=== PATIENT | female | born 1945 | race Caucasian/White ===

== ENCOUNTER → 2016-07-12 | Outpatient (CLI) | payer OTHER | LOC: KOH-I 10:11 | DX: M19.042 Primary osteoarthritis, left hand (principal) | CPT/HCPCS: 73140 ==

== ENCOUNTER 2021-05-04 19:30 | Inpatient (IN) | payer MEDICARE ==
[~2021-05-04] VITALS: Ht 162.6 cm; Wt 74.8 kg
[~2021-05-04 19:30] MED LIST changes: -ATORVASTATIN CA20 MG PO; -BENEFIBER475 GM PO; -CELEXA 20MG TAB20 MG PO; -CELEXA10 MG PO; -ELIQUIS5 MG PO; -EVISTA 60 MG TA60 MG PO; -MELOXICAM15 MG PO; -SINGULAIR10 MG PO; -SUPER B-COMPL400 MCG PO
[2021-05-04 20:47] LABS: BUN/CREATININE RATIO 25 (0-10)
[2021-05-04 21:04] LABS: HEMOGLOBIN 13.9 gm/dl (12.3-15.3); RED BLOOD COUNT 4.27 M/UL (4.00-5.10); WHITE BLOOD COUNT 7.5 K/UL (4.5-11.0)
[2021-05-05] MEDS ORDERED: NEXIUM40 MG PO (01:58)
[2021-05-05] MEDS ORDERED: MELATONIN10 M2 PO (01:59)
[2021-05-05] MEDS ORDERED: CELEXA10 MG PO (02:00)
[2021-05-05] MEDS ORDERED: MELOXICAM15 MG PO (02:02)
[2021-05-05 05:13] LABS: HEMOGLOBIN 12.6 gm/dl (12.3-15.3); RED BLOOD COUNT 3.92 M/UL (4.00-5.10); WHITE BLOOD COUNT 5.8 K/UL (4.5-11.0)
[2021-05-05 05:17] LABS: BUN/CREATININE RATIO 21 (0-10)
[2021-05-05] MEDS ORDERED: ATORVASTATIN CA20 MG PO (06:39)
[2021-05-05] MEDS ORDERED: SINGULAIR10 MG PO (06:42)
[2021-05-05] MEDS ORDERED: BENEFIBER475 GM PO (06:45)
[2021-05-05] MEDS ORDERED: EVISTA 60 MG TA60 MG PO (13:00)
[2021-05-05] MEDS ORDERED: SUPER B-COMPL400 MCG PO (13:05)
[2021-05-06 06:35] LABS: HEMOGLOBIN 12.4 gm/dl (12.3-15.3); RED BLOOD COUNT 3.87 M/UL (4.00-5.10); WHITE BLOOD COUNT 5.6 K/UL (4.5-11.0)
[2021-05-06 07:20] LABS: BUN/CREATININE RATIO 20 (0-10)
[2021-05-06] MEDS ORDERED: CELEXA 20MG TAB20 MG PO (16:41)
[2021-05-06] MEDS ORDERED: ELIQUIS5 MG PO (16:41)
== END 2021-05-06 18:16 | disposition home or self-care (01) | DRG 176 ==
LOC: ER1 19:30 → M/S 20:31 → CDU 20:31 → 3 EAST 05-05 02:03 → M/S 05-05 20:59
PROVIDERS: Emergency Medicine; ADMIT Internal Medicine
PROC: B24BZZZ Ultrasonography of Heart with Aorta (ICD-10-PCS; principal; 2021-05-05)
DX: I26.99 Other pulmonary embolism without acute cor pulmonale (principal); L30.9 Dermatitis, unspecified; Z20.822 Contact with and (suspected) exposure to COVID-19; E78.5 Hyperlipidemia, unspecified; I10 Essential (primary) hypertension; M19.91 Primary osteoarthritis, unspecified site; Z90.710 Acquired absence of both cervix and uterus; Z82.49 Family history of ischemic heart disease and other diseases of the circulatory system; Z83.438 Family history of other disorder of lipoprotein metabolism and other lipidemia; Z79.01 Long term (current) use of anticoagulants; Z79.52 Long term (current) use of systemic steroids; Z79.899 Other long term (current) drug therapy
CPT/HCPCS: ECHO; 36415; 70450; 71045; 80048; 82550; 82553; 83874; 84132; 84484; 85025; 85610; 85730; 93005; 93306; 96374; 99285; J1644; U0002

== ENCOUNTER → 2021-05-04 | Outpatient (CLI) | payer MEDICARE ==
[~2021-05-04] MED LIST: ATIVAN 1MG TABLE1 MG PO; ATORVASTATIN CA20 MG PO; BENEFIBER475 GM PO; CELEXA 20MG TAB20 MG PO; CELEXA10 MG PO; CHLORTHALIDONE25 MG PO; CITALOPRAM HBR10 MG PO; DILTIAZEM ER180 MG PO; DRISDOL50000 UNIT PO; ELIQUIS5 MG PO; EVISTA 60 MG TA60 MG PO; EVISTA60 MG PO; MEGA BIOTIN10000 MCG PO; MELATONIN10 M2 PO; MELOXICAM15 MG PO; MULTIVITAMIN W1 EAC1 PO; NEXIUM40 MG PO; SINGULAIR10 MG PO; STOOL SOFTENER100 MG PO; SUPER B-COMPL400 MCG PO; TURMERIC PO; VESICARE5 MG PO; VITAMIN B-121000 MCG PO
== END ==
LOC: CT 17:00
DX: R06.02 Shortness of breath (principal); R79.89 Other specified abnormal findings of blood chemistry; I26.94 Multiple subsegmental thrombotic pulmonary emboli without acute cor pulmonale
CPT/HCPCS: 71275; Q9967

== ENCOUNTER 2021-05-20 11:18 | Emergency (ER) | payer MEDICARE ==
[~2021-05-20 11:18] MED LIST changes: +ATORVASTATIN CA20 MG PO; +BENEFIBER475 GM PO; +CELEXA 20MG TAB20 MG PO; +CELEXA10 MG PO; +ELIQUIS5 MG PO; +EVISTA 60 MG TA60 MG PO; +MELOXICAM15 MG PO; +SINGULAIR10 MG PO; +SUPER B-COMPL400 MCG PO
[2021-05-20 12:19] LABS: HEMOGLOBIN 13.7 gm/dl (12.3-15.3); RED BLOOD COUNT 4.19 M/UL (4.00-5.10)
[2021-05-20 12:40] LABS: BUN/CREATININE RATIO 15 (0-10)
[2021-05-20] MEDS ORDERED: PREDNISONE 20 M20 MG PO (17:19)
== END 2021-05-20 15:25 | disposition home or self-care (01) ==
LOC: ER1 11:18
PROVIDERS: Physician Assistant
DX: R07.89 Other chest pain (principal); E87.6 Hypokalemia; M79.81 Nontraumatic hematoma of soft tissue; R20.9 Unspecified disturbances of skin sensation; I10 Essential (primary) hypertension; Z86.711 Personal history of pulmonary embolism
CPT/HCPCS: 71045; 73030; 80053; 81001; 82550; 82553; 83874; 84484; 85025; 93005; 99285

== ENCOUNTER → 2021-05-25 | Outpatient (CLI) | payer MEDICARE ==
[~2021-05-25] MED LIST changes: +PREDNISONE 20 M20 MG PO
== END ==
LOC: KOH-I 12:02
DX: M54.2 Cervicalgia (principal); M47.812 Spondylosis without myelopathy or radiculopathy, cervical region
CPT/HCPCS: 72050

== ENCOUNTER → 2021-06-20 | Outpatient (CLI) | payer MEDICARE | LOC: KOH-I 14:00 | DX: M50.11 Cervical disc disorder with radiculopathy, high cervical region (principal); R20.2 Paresthesia of skin | CPT/HCPCS: 72141 ==

== ENCOUNTER → 2021-09-22 | Outpatient (CLI) | payer MEDICARE ==
[~2021-09-22] MED LIST changes: +CLARITIN10 M2 PO; +K-TAB ER20 MEQ PO; +LEVOFLOXACIN500 MG PO
[2021-09-22 15:26] LABS: BORDETELLA PARAPERTUSSIS Not Detected (Not Detectd); BORDETELLA PERTUSSIS Not Detected (Not Detectd); CHLAMYDIA PNEUMONIAE Not Detected (Not Detectd); CORONAVIRUS HKU1 Not Detected (Not Detectd); CORONAVIRUS NL63 Not Detected (Not Detectd); CORONAVIRUS OC43 Not Detected (Not Detectd); CORONOAVIRUS 229E Not Detected (Not Detectd); HUMAN METAPNEUMOVIRUS Not Detected (Not Detectd); HUMAN RHINOVIRUS/ENTEROVIRUS Not Detected (Not Detectd); INFLUENZA A Not Detected (Not Detectd); INFLUENZA B Not Detected (Not Detectd); MYCOPLASMA PNEUMONIAE Not Detected (Not Detectd); PARAINFLUENZA VIRUS 1 Not Detected (Not Detectd); PARAINFLUENZA VIRUS 2 Not Detected (Not Detectd); PARAINFLUENZA VIRUS 3 Not Detected (Not Detectd); PARAINFLUENZA VIRUS 4 Not Detected (Not Detectd); RESPIRATORY SYNCYTIAL VIRUS Not Detected (Not Detectd)
[2021-09-22 16:49] LABS: SARS-CoV-2 NOT DETECTED (Not Detectd)
== END ==
LOC: LAB 15:06
PROVIDERS: Physician Assistant
DX: R05.9 Cough, unspecified (principal); R50.9 Fever, unspecified; Z20.822 Contact with and (suspected) exposure to COVID-19; J98.4 Other disorders of lung
CPT/HCPCS: 71046; 87633

== ENCOUNTER 2021-09-26 09:34 | Emergency (ER) | payer MEDICARE ==
[~2021-09-26 09:34] MED LIST changes: -CLARITIN10 M2 PO; -K-TAB ER20 MEQ PO; -LEVOFLOXACIN500 MG PO
[2021-09-26 10:59] LABS: HEMOGLOBIN 13.1 gm/dl (12.3-15.3); RED BLOOD COUNT 4.03 M/UL (4.00-5.10); WHITE BLOOD COUNT 10.4 K/UL (4.5-11.0)
[2021-09-26 11:16] LABS: BUN/CREATININE RATIO 13 (0-10)
[2021-09-26 20:31] LABS: BUN/CREATININE RATIO 12 (0-10)
[2021-09-26] MEDS ORDERED: LEVOFLOXACIN500 MG PO (21:00)
[2021-09-26] MEDS ORDERED: K-TAB ER20 MEQ PO (21:00)
[2021-09-26] MEDS ORDERED: CLARITIN10 M2 PO (21:22)
== END 2021-09-26 22:06 | disposition home or self-care (01) ==
LOC: ER1 09:34
PROVIDERS: Internal Medicine; Physician Assistant
DX: J18.9 Pneumonia, unspecified organism (principal); E87.1 Hypo-osmolality and hyponatremia; E87.6 Hypokalemia; R31.9 Hematuria, unspecified; R79.1 Abnormal coagulation profile; Z20.822 Contact with and (suspected) exposure to COVID-19; I10 Essential (primary) hypertension; K21.9 Gastro-esophageal reflux disease without esophagitis; Z88.8 Allergy status to other drugs, medicaments and biological substances; Z86.711 Personal history of pulmonary embolism
CPT/HCPCS: 0240U; 36600; 70450; 71046; 72125; 80048; 80053; 81001; 82550; 82553; 82803; 83605; 83735; 83880; 84484; 85025; 85379; 85610; 87040; 93005; 96365; 96366; 96367; 96368; 96375; 99285; J0456; J0696; J1956; J3480; J7030; Q9967

== ENCOUNTER → 2021-10-09 | Outpatient (CLI) | payer MEDICARE ==
[~2021-10-09] MED LIST changes: +CLARITIN10 M2 PO; +K-TAB ER20 MEQ PO; +LEVOFLOXACIN500 MG PO
== END ==
LOC: KOH-I 16:31
DX: M25.562 Pain in left knee (principal); M17.12 Unilateral primary osteoarthritis, left knee; M25.462 Effusion, left knee; M61.9 Calcification and ossification of muscle, unspecified
CPT/HCPCS: 73562

== ENCOUNTER → 2021-11-02 | Outpatient (CLI) | payer MEDICARE ==
[~2021-11-02] VITALS: Ht 157.5 cm; Wt 69.4 kg
== END ==
LOC: OPSV 13:00
DX: M85.80 Other specified disorders of bone density and structure, unspecified site (principal); K21.9 Gastro-esophageal reflux disease without esophagitis; I26.99 Other pulmonary embolism without acute cor pulmonale
CPT/HCPCS: 96365; J3489